=== PATIENT | female | born 1940 | race Caucasian/White ===

== ENCOUNTER 2016-07-06 09:48 | Outpatient (RCR) | payer MEDICARE, MEDICAID ==
[~2016-07-06 09:48] MED LIST: ALEN70TA51 PO; CALC-656 PO; GABA-488 PO; HYDR200T46 PO; INSU100I29 SQ; LISI40TA PO; MULT-974 PO; OMEG-12 PO; OMEP20CA12 PO; SITA50TA PO
--- OUTSIDE RECORDS SUMMARY | 2016-07-06 09:54 | XMS REPORT | Continuity of Care Document ---
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 If you do not see the information that you expected, contact Release of Information in the Health Information Management department at [phone] for further assistance in locating additional records.[facility] Active Allergies and Adverse Reactions Allergen Noted Date Severity Reactions Comments Leena 07/10/2014 ITCHING Current Medications Prescription Sig. Disp. Refills Start End Date Status Date lisinopril (PRINIVIL, Take 40 mg by mouth Active ZESTRIL) 40 mg tablet daily. risedronate(+) (ACTONEL) Take 35 mg by mouth every Active 35 mg tablet 7 days. cyanocobalamin(+) Take 500 mcg by mouth Active (VITAMIN B-12) 500 mcg daily. tablet fish oil /omega-3 fatty Take 1 Cap by mouth Active acids (SEA-OMEGA) daily. 340/1000 mg capsule cholecalciferol (Vitamin Take 1,000 Units by mouth Active D3) (VITAMIN D-3) 1,000 daily. units tablet CALCIUM CARBONATE Take 500 mg by mouth Active (CALCIUM 500 PO) daily. sitaGLIPtin (JANUVIA) 100 Take 100 mg by mouth Active mg tab tablet daily. gabapentin (NEURONTIN) Take 300 mg by mouth Active 300 mg capsule three times daily. insulin detemir(+) Inject 15 Units into Active (LEVEMIR) 100 unit/mL area(s) as directed at soln bedtime daily. omeprazole DR(+) Take 20 mg by mouth Active (PRILOSEC) 20 mg capsule daily. pioglitazone (ACTOS) 30 Take 1 Tab by mouth 30 Tab 1 07/18/19 Active mg tablet daily. 15 ascorbic acid (VITAMIN-C) Take 1 Tab by mouth 90 Tab 3 07/18/19 Active 500 mg tablet daily. 15 hydroxychloroquine Take 1 Tab by mouth twice 60 Tab 1 07/18/19 Active (PLAQUENIL) 200 mg tablet daily. 15 ferrous sulfate 325 mg Take 1 Tab by mouth 30 Tab 1 07/18/19 Active (65 mg iron) tablet daily. 15 sodium chloride (SEA Apply 1-2 Sprays to each 1 Bottle 12 07/18/19 Active MIST) 0.65 % nasal spray nostril as directed twice 15 daily. HYDROcodone/acetaminophen Take 1 Tab by mouth every 30 Tab 0 07/18/19 Active (NORCO; VICODIN) 5-325 mg 8 hours as needed for 15 tablet Pain. 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 Pulse 80 07/18/2014 4:05 PM NURSE SPECIALIST Temperature 36.9 C (98.4 F) 07/18/2014 4:05 PM NURSE SPECIALIST Respiratory Rate - - Height 1.651 m (5' 5") 07/16/2014 1:19 PM NURSE SPECIALIST Weight 65.7 kg (144 lb 13.5 oz) 07/16/2014 1:19 PM NURSE SPECIALIST Body Mass Index 24.1 07/16/2014 1:19 PM NURSE SPECIALIST Oxygen Saturation 97% 07/18/2014 4:05 PM NURSE SPECIALIST Plan of Care Health Maintenance Due Date Last Done Comments Physical (Comprehensive) 1948 Exam Pertussis Vaccine 1952 Tetanus Vaccine 1958 Breast Cancer Screening 1981 Colorectal Cancer 1991 Screening Shingles Vaccine 2001 Osteoporosis Screening 2006 Prevnar/Pneumovax (#1) 2006 Influenza Vaccine 02/26/2016 Results from Last 3 Months Not on file
[2016-07-06 10:18] LABS: BASOPHILS % (AUTO) 0 % (0-10); EOSINOPHILS % (AUTO) 1 % (0-10); LYMPHOCYTES # (AUTO) 0.8 X 10^3 (1.0-4.0); LYMPHOCYTES % (AUTO) 19 % (12-44); MEAN CORPUSCULAR HEMOGLOBIN 29 PG (25-34); MEAN CORPUSCULAR HGB CONC 34 G/DL (32-36); MEAN CORPUSCULAR VOLUME 87 FL (80-99); MEAN PLATELET VOLUME 9.4 FL (7.4-10.4); MONOCYTES # (AUTO) 0.5 X 10^3 (0.0-1.0); MONOCYTES % (AUTO) 12 % (0-12); NEUTROPHILS # (AUTO) 2.9 X 10^3 (1.8-7.8); NEUTROPHILS % (AUTO) 68 % (42-75); PLATELET COUNT 150 10^3/uL (130-400); RED BLOOD COUNT 4.01 10^6/uL (4.35-5.85); RED CELL DISTRIBUTION WIDTH 13.2 % (10.0-14.5); WHITE BLOOD COUNT 4.3 10^3/uL (4.3-11.0)
[2016-07-06 11:35] LABS: ALBUMIN 4.3 G/DL (3.2-4.5); BILIRUBIN,TOTAL 0.4 MG/DL (0.1-1.0); CALCIUM 9.9 MG/DL (8.5-10.1); CREATININE SERUM 1.5 MG/DL (0.60-1.30); POTASSIUM 4.9 MMOL/L (3.6-5.0); TOTAL PROTEIN 7.1 G/DL (6.4-8.2)
[2016-07-06 14:42] LABS: %SAT TOTAL IRON BINDING CAPIC 23 % (15-50); TIBC 302 ug/dL (280-380)
[2016-07-07 06:32] LABS: FERRITIN 90 ng/mL (15-150); UIBC 234 ug/dL (55-450)
== END 2016-10-04 | disposition home or self-care (01) ==
LOC: ONC 09:48
PROVIDERS: ATTEND Internal Medicine Hematology & Oncology
DX: D61.818 Other pancytopenia (principal); E11.22 Type 2 diabetes mellitus with diabetic chronic kidney disease; I12.9 Hypertensive chronic kidney disease with stage 1 through stage 4 chronic kidney disease, or unspecified chronic kidney disease; N18.9 Chronic kidney disease, unspecified; E61.1 Iron deficiency; R12 Heartburn; Z79.899 Other long term (current) drug therapy
CPT/HCPCS: 36415; 80053; 82728; 83540; 85025; 99213